=== PATIENT | female | born 1990 | race Caucasian/White ===

== ENCOUNTER → 2025-07-18 09:13 | Outpatient (REF) | payer BC, SELFPAY | LOC: PNTC 09:13 | PROVIDERS: ATTENDING PHYSICIAN Student in an Organized Health Care Education/Training Program | DX: Z36.82 Encounter for antenatal screening for nuchal translucency (principal); Z36.0 Encounter for antenatal screening for chromosomal anomalies | CPT/HCPCS: 76801; 76813 ==

== ENCOUNTER → 2025-08-03 10:24 | Outpatient (REF) | payer BC, SELFPAY | LOC: PNTC 10:24 | PROVIDERS: ATTENDING PHYSICIAN Student in an Organized Health Care Education/Training Program | DX: O99.210 Obesity complicating pregnancy, unspecified trimester (principal) | CPT/HCPCS: 76805 ==

== ENCOUNTER → 2025-09-08 09:58 | Outpatient (REF) | payer BC, SELFPAY | LOC: PNTC 09:58 | PROVIDERS: ATTENDING PHYSICIAN Student in an Organized Health Care Education/Training Program | DX: O09.522 Supervision of elderly multigravida, second trimester (principal); Z36.86 Encounter for antenatal screening for cervical length; Z36.3 Encounter for antenatal screening for malformations; O99.212 Obesity complicating pregnancy, second trimester; E66.9 Obesity, unspecified | CPT/HCPCS: 76811; 76817 ==

== ENCOUNTER → 2025-10-19 13:38 | Outpatient (REF) | payer BC, SELFPAY | LOC: PNTC 13:38 | PROVIDERS: ATTENDING PHYSICIAN Student in an Organized Health Care Education/Training Program | DX: O99.212 Obesity complicating pregnancy, second trimester (principal); O09.522 Supervision of elderly multigravida, second trimester | CPT/HCPCS: 76816 ==